=== PATIENT | female | born 1945 | race Two or more races ===

== ENCOUNTER 2024-08-17 05:52 | Day surgery (SDC) | payer OTHER ==
[2024-08-09 13:01] VITALS: BP 122/78
[~2024-08-17] VITALS: Ht 165.1 cm; Wt 78.5 kg
[~2024-08-17 05:52] MED LIST: CYMBALTA30 MG PO; CYMBALTA60 MG PO; LOTREL 5-20 MG1 CAP; SIMVASTATIN5 MG
[2024-08-17] MEDS ORDERED: HEMOSTATIC MATRIX 1 KIT KIT TOP ONE (07:39)
[2024-08-17] MEDS ORDERED: BUPIVACAINE HCL/MPF 0.5% 30ML VIAL ONE (07:39)
[2024-08-17] MEDS ORDERED: POVIDONE-IODINE 118 ML BOTT TOP ONE (07:39)
[2024-08-17] MEDS ORDERED: DIBUCAINE 30 GM TUBE ONE (07:39)
[2024-08-17] MEDS ORDERED: METRONIDAZOLE/SODIUM CHLORIDE 500 MG/100 ML PIGGYBACK IV ONE (07:40)
[2024-08-17] MEDS ORDERED: LIDOCAINE HCL 1%/EPINEPHRINE 20ML VIAL IJ ONE (07:40)
[2024-08-17] MEDS ORDERED: CEFTRIAXONE SODIUM 2,000 MG VIAL ONE (07:40)
== END 2024-08-17 12:35 | disposition home or self-care (01) ==
LOC: CIR.AMB 05:52
PROVIDERS: ATTEND Colon & Rectal Surgery
DX: K64.2 Third degree hemorrhoids (principal); K64.4 Residual hemorrhoidal skin tags; Z91.018 Allergy to other foods